=== PATIENT | female | born 1980 | race Caucasian/White ===

== ENCOUNTER 2017-05-28 01:10 | Inpatient (IN) | payer MEDICAID ==
[~2017-05-28] VITALS: Ht 182.9 cm; Wt 146.5 kg
[2017-05-28 01:13] VITALS: BP 140/97
--- NOTE | 2017-05-28 01:22 | NUR ---
PT TAKEN TO BED 3
--- NOTE | 2017-05-28 01:25 | NUR ---
36/F CAME IN W C/O RT LEG PAIN S/T CELLULITIS. RT LEG NOTED WITH REDNESS TO POSTERIOR AND ANTERIOR LEG WITH NONPITTING EDEMA NOTED, SKIN INTACT, +PMSC TO LEG WITH C/O PAIN. PT STATES SHE HAD SIMILAR EPISODE X2 YEARS AGO. PMH: [id number]
[2017-05-28] MEDS ORDERED: VANCOMYCIN 1,000 MG in DEXTROSE 5% 250 ML IV ONE (01:30)
[2017-05-28] MEDS ORDERED: PIPERACILLIN/TAZOBACTAM 3.375 GM in DEXT 5% MINI-BAG PLUS 50 ML IV ONE (01:30)
[2017-05-28] MEDS ORDERED: ACETAMINOPHEN EXTRA STRENGTH 500 MG TAB PO ONE (01:30)
[2017-05-28] MEDS ORDERED: fentaNYL 0.05 MG/ML VIAL IVP ONE (01:30)
[2017-05-28] MEDS ORDERED: ONDANSETRON 4 MG/2 ML VIAL IVP ONE (01:30)
[2017-05-28] MEDS ORDERED: PIPERACILLIN/TAZOBACTAM 3.375 GM VIAL IV ONE (01:41)
[2017-05-28] MEDS ORDERED: VANCOMYCIN 1,000 MG VIAL ONE (01:41)
--- NOTE | 2017-05-28 01:44 | NUR ---
Patient being evaluated by physician at bedside.
[2017-05-28 01:53] LABS: HEMATOCRIT 35.5 % (36-48)
[2017-05-28 02:00] LABS: HEMOGLOBIN 11.6 g/dL (12.0-16.0); MEAN CORPUSCULAR HEMOGLOBIN 25 pg (27-31); MEAN CORPUSCULAR HGB CONC 33 g/dL (33-37); MEAN CORPUSCULAR VOLUME 78 fL (80-94); PLATELET COUNT (AUTO) 256 K/uL (140-450); RED BLOOD CELL COUNT(AUTO) 4.55 MIL/uL (4.20-5.40); RED CELL DISTRIBUTION WIDTH 16.4 % (11.6-13.7); WHITE BLOOD COUNT (AUTO) 10.8 K/uL (4.8-10.8)
[2017-05-28 02:02] LABS: ANION GAP 13.4 (8-16); CARBON DIOXIDE 27.5 mmol/L (21-32); CREATININE 1.1 mg/dL (0.6-1.3); POTASSIUM 3.9 mmol/L (3.5-5.1)
[2017-05-28 02:06] LABS: LYMPHOCYTES % (MANUAL) 7 % (20-46); MONOCYTES % (MANUAL) 5 % (5-12)
[2017-05-28 02:09] LABS: ALBUMIN 3.3 g/dL (3.4-5.0); TOTAL BILIRUBIN 0.3 mg/dL (0.0-1.0)
[2017-05-28 02:37] LABS: APPEARANCE,URINE CLEAR (CLEAR); BILIRUBIN,URINE NEGATIVE (NEGATIVE); BLOOD, URINE NEGATIVE (NEGATIVE); COLOR,URINE YELLOW (YELLOW); LEUKOCYTE ESTERASE ,URINE NEGATIVE (NEGATIVE); NITRITE, URINE NEGATIVE (NEGATIVE); UGLUCOSE TRACE (NEGATIVE)
--- NOTE | 2017-05-28 02:41 | NUR ---
Ultrasound at bedside.
[2017-05-28 02:45] LABS: RBC,URINE 0-5 (RARE) /HPF (0-5); WBC,URINE 0-5 (RARE) /HPF (0-5)
--- NOTE | 2017-05-28 03:00 | NUR ---
Patient appears to be resting comfortably in bed. Vital Signs within normal limits. Respirations even and unlabored.
--- NOTE | 2017-05-28 04:30 | NUR ---
DR. WHALEY EVALUATING PATIENT AT BEDSIDE.
[2017-05-28] MEDS ORDERED: ONDANSETRON 4 MG/2 ML VIAL IVP PRN (04:50)
[2017-05-28] MEDS ORDERED: HYDROcodone/APAP 5/325 MG 1 TAB TAB PO PRN (04:50)
--- NOTE | 2017-05-28 05:25 | NUR ---
Patient will be admitted to care of [facility]. Admited to MS. Will go to room 112A. Belongings list completed. BEDSIDE Report to MANDI BOUCHER.IV SL AND PATENT
[2017-05-28] MEDS ORDERED: CLINDAMYCIN 600 MG in DEXTROSE 5% 50 ML IV SCH (05:30)
--- NOTE | 2017-05-28 05:30 | NUR ---
PICTURE OF RT LOWER EXTREMITY TAKEN.
--- NOTE | 2017-05-28 05:30 | NUR ---
PATIENT IS AWAKE ALERT ORIENTED RESTING IN BED HAD SWELLING AND REDNESS TO RT LOWER EXTREMITY. PATIENT AMBULATES WELL. IV ACCESS TO RT AC PATENT. SKIN CHECK DONE.PLAN OF CARE DISCUSSED WITH THE PATIENT AND PATIENT ORIENTED TO CALL LIGHT AND ROOM. RN ESTAPON AWARE OF NEW ORDERS AND WILL ADMINISTER ANTIBIOTICS ORDERED. CALL LIGHT WITHIN REACH WILL CONTINUE TO MONITOR.
[2017-05-28 05:34] VITALS: BP 143/80
[2017-05-28] MEDS ORDERED: CLINDAMYCIN 600 MG/4 ML VIAL ONE (05:39)
[2017-05-28] MEDS: NACL 0.9% 1,000 ML IV SCH ×3 (05:50→20:40)
[2017-05-28 06:31] LABS: BARBITURATE, URINE NEG. ng/ml (NEG <=200); BENZODIAZEPINE, URINE NEG. ng/mL (NEG <=200); CANNABINOID, URINE POS. ng/mL (NEG <=50); COCAINE, URINE NEG. ng/mL (NEG <=300); OPIATE, URINE NEG. ng/mL (NEG <=2000); PHENCYCLIDINE SCREEN,URINE NEG. ng/mL (NEG <=25)
--- NOTE | 2017-05-28 06:45 | NUR ---
PATIENT WAS SEEN BY RESIDENT MIGNON THIS MORNING.
--- NOTE | 2017-05-28 07:02 | NUR ---
PATIENT RESTING IN BED AT THIS TIME.IVF INFUSING WELL IV SITE PATENT.
--- NOTE | 2017-05-28 07:30 | NUR ---
ENDORSEMENT RECEIVED FROM HEALTH INFORMATION INTERNSHIP NURSE. PATIENT IS AWAKE, ALERT. RESPIRATION EVEN, UNLABOR. SKIN DRY AND WARM. IV PATENT AND INTACT. NO DISTRESS NOTED AT THIS TIME. PLAN OF CARE WAS DISCUSSED WITH PATIENT. BED AT LOW POSITION. CALL LIGHT WITHIN REACH.
--- NOTE | 2017-05-28 07:36 | NUR ---
PATIENT IS CURRENTLY STABLE REPORT ENDORSED TO MER HINES.
[2017-05-28 07:59] LABS: FREE T4 (FREE THYROXINE) 1.01 ng/dL (0.76-1.46)
[2017-05-28 08:00] VITALS: BP 126/68
[2017-05-28 08:00] LABS: THYROID STIMULATING HORMONE 1.78 uIU/mL (0.34-3.74)
[2017-05-28 08:15] LABS: CHOL/HDL RATIO 3.9 (1-4.5)
[2017-05-28] MEDS: LEVOFLOXACIN 750 MG/D5W PREMIX 150 ML IV SCH (08:55)
[2017-05-28] MEDS: FERROUS SULFATE 325 MG TABEC PO SCH (08:55)
[2017-05-28] MEDS: DOCUSATE 100 MG/10 ML UDC GT SCH ×2 (08:55→09:00)
[2017-05-28] MEDS: ASCORBIC ACID 500 MG TAB PO SCH (08:55)
--- NOTE | 2017-05-28 09:08 | NUR ---
PATIENT HAS BEEN SCREENED AND CATEGORIZED HIGH NUTRITION RISK. PATIENT WILL BE SEEN WITHIN 1-2 DAYS OF ADMISSION. 05/28/18-05/29/[address]
--- NOTE | 2017-05-28 10:30 | NUR ---
PATIENT IS AWAKE, ALERT. RESPIRATION EVEN, UNLABOR ON ROOM AIR. DENIED PAIN AT THIS TIME. NO DISTRESS NOTED. CALL LIGHT WITHIN REACH.
[2017-05-28] MEDS: CLINDAMYCIN 600 MG in DEXTROSE 5% 50 ML IV SCH ×2 (12:14→20:19)
--- NOTE | 2017-05-28 12:32 | NUR ---
PATIENT COMPLAINED OF LEG PAIN 11/23, STATED [employer] DOES NOT WORK FOR HER. DR. DOMINGO WAS MADE AWARE. WILL MEDICATE PER ORDER
[2017-05-28] MEDS: MORPHINE SULFATE 2 MG/ML SYR IVP PRN ×2 (13:21→20:19)
--- NOTE | 2017-05-28 14:21 | NUR ---
CM NOTE INITIAL REVIEW FAXED TO [facility] / FAX# [phone]
[2017-05-28 16:00] VITALS: BP 146/88
--- NOTE | 2017-05-28 16:10 | NUR ---
PATIENT IS SLEEPING COMFORTABLY, EASILY AROUSABLE BY TOUCH. RESPIRATION EVEN, UNLABOR ON ROOM AIR. COMPLAINED OF HEADACHE 09/23. DR. DOMINGO WAS MADE AWARE.
[2017-05-28] MEDS: ACETAMINOPHEN 325 MG TAB PO PRN (17:35)
--- NOTE | 2017-05-28 18:16 | NUR ---
PATIENT IS AWAKE, ALERT, EATING DINNER. RESPIRATION EVEN, UNLABOR ON ROOM AIR. IV PATENT AND INTACT. NO DISTRESS NOTED AT THIS TIME. CALL LIGHT WITHIN REACH
--- NOTE | 2017-05-28 19:13 | NUR ---
ENDORSEMENT GIVEN TO THE TIMBER ESTIMATOR NURSE. PATIENT IS STABLE AT THIS TIME.
--- NOTE | 2017-05-28 19:14 | NUR ---
PATIENT REPORT RECEIVED FROM MORNING NURSE AT BEDSIDE. PATIENT IS AWAKE, ALERT AND ORIENTED. NO SIGNS AND SYMPTOMS OF DISTRESS NOTED. IV SITE NOTED ON RIGHT AC, IVF INFUSING WELL. PATIENT COMPLAINS OF 7/10 LEG PAIN. WILL MEDICATE ORDERED. PLAN OF CARE DISCUSSED WITH PATIENT. PATIENT VERBALIZED UNDERSTANDING. BED IN LOWEST POSITION, SIDE RAILS UP AND CALL LIGHT WITHIN REACH. WILL CONTINUE TO MONITOR.
--- NOTE | 2017-05-28 21:00 | NUR ---
MEDICATION EDUCATION GIVEN. PATIENT VERBALIZED UNDERSTANDING. ADMINISTERED SCHEDULED MEDICATION ORDERED. WILL CONTINUE TO MONITOR.
[2017-05-29] VITALS: BP 122/68
--- NOTE | 2017-05-29 00:01 | NUR ---
CHECKED ON PATIENT. PATIENT IS ASLEEP. NO SIGNS AND SYMPTOMS OF DISTRESS NOTED. BREATHING EVEN AND UNLABORED. WILL CONTINUE TO MONITOR.
[2017-05-29] MEDS: ACETAMINOPHEN 325 MG TAB PO PRN (02:30)
[2017-05-29] MEDS: NACL 0.9% 1,000 ML IV SCH ×3 (03:47→20:47)
[2017-05-29] MEDS: CLINDAMYCIN 600 MG in DEXTROSE 5% 50 ML IV SCH ×3 (04:45→20:55)
--- NOTE | 2017-05-29 04:48 | NUR ---
CHECKED ON PATIENT. PATIENT IS ASLEEP. NO SIGNS AND SYMPTOMS OF DISTRESS NOTED. BREATHING EVEN AND UNLABORED. WILL CONTINUE TO MONITOR.
[2017-05-29 06:28] LABS: BASOPHILS # (AUTO) 0.1 K/uL (0.00-0.22); BASOPHILS % (AUTO) 0.8 % (0.0-2.0); EOSINOPHILS # (AUTO) 0.2 K/uL (0-0.4); EOSINOPHILS % (AUTO) 2.9 % (0.0-4.0); HEMATOCRIT 33.9 % (36-48); HEMOGLOBIN 10.9 g/dL (12.0-16.0); LYMPHOCYTES # (AUTO) 1.6 K/uL (2.5-16.5); LYMPHOCYTES % (AUTO) 21.2 % (20.5-51.1); MEAN CORPUSCULAR HEMOGLOBIN 25 pg (27-31); MEAN CORPUSCULAR HGB CONC 32 g/dL (33-37); MEAN CORPUSCULAR VOLUME 78 fL (80-94); MONOCYTES % (AUTO) 13.3 % (1.7-9.3); NEUTROPHILS # (AUTO) 4.7 K/uL (1.8-7.7); NEUTROPHILS % (AUTO) 61.8 % (42.2-75.2); PLATELET COUNT (AUTO) 234 K/uL (140-450); RED BLOOD CELL COUNT(AUTO) 4.36 MIL/uL (4.20-5.40); RED CELL DISTRIBUTION WIDTH 16.6 % (11.6-13.7); WHITE BLOOD COUNT (AUTO) 7.6 K/uL (4.8-10.8)
--- NOTE | 2017-05-29 07:15 | NUR ---
PATIENT REPORT GIVEN TO MORNING NURSE FOR CONTINUITY OF CARE. PATIENT IS IN STABLE CONDITION.
--- NOTE | 2017-05-29 07:17 | NUR ---
RECEIVED PATIENT REPORT AT BEDSIDE FROM NIGHT NURSE. PATIENT IS DROWSY, ATTEMPTED TO ASSESS ALERTNESS AND ORIENTATION HOWEVER PATIENT FALLS BACK TO SLEEP WHEN QUESTIONS ARE ASKED. WHEN ASKED IF PATIENT HAS PAIN PATIENT STATED, "I HAVE 8/10 RIGHT LEG PAIN," PATIENT THEN FELL ASLEEP. SHE HAS NO S/S OF ACUTE DISTRESS. IV NOTED ON THE LEFT HAND WITH IVF'S INFUSING WELL, PATENT AND INTACT. NOTED RIGHT LEG ERYTHEMA, WARM AND TENDER TO TOUCH, SLIGHTLY EDEMATOUS. PATIENT WAS EXPLAINED POC FOR TODAY, HOSPITAL ENVIRONMENT AND USE OF CALL LIGHT FOR ASSISTANCE, PATIENT VERBALIZED UNDERSTANDING. ALL NEEDS MET AT THIS TIME, BED IN LOW POSITION WITH CALL LIGHT WITHIN REACH.
[2017-05-29 07:50] VITALS: BP 135/75
[2017-05-29 07:53] LABS: ANION GAP 15.4 (8-16); CREATININE 0.7 mg/dL (0.6-1.3); POTASSIUM 4.4 mmol/L (3.5-5.1)
[2017-05-29 07:56] LABS: PHOSPHORUS 4.4 mg/dL (2.5-4.9)
[2017-05-29] MEDS: FERROUS SULFATE 325 MG TABEC PO SCH (08:45)
[2017-05-29] MEDS: ASCORBIC ACID 500 MG TAB PO SCH (08:45)
[2017-05-29] MEDS: DOCUSATE 100 MG/10 ML UDC GT SCH (08:45)
[2017-05-29] MEDS: MORPHINE SULFATE 2 MG/ML SYR IVP PRN ×3 (08:56→22:05)
[2017-05-29] MEDS: LEVOFLOXACIN 750 MG/D5W PREMIX 150 ML IV SCH (09:35)
--- NOTE | 2017-05-29 09:36 | NUR ---
ADMINISTERED SCHEDULED MEDS. IV ANTIBIOTIC INFUSING WELL. BED IN LOW POSITION. CALL LIGHT WITHIN REACH.
--- NOTE | 2017-05-29 12:15 | NUR ---
TRIED TO CALL [facility] TO CONFIRM FAX NUMBER. WAS INFORMED THAT EVERETT FROM [facility] HAS THIS PATIENT. 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 FAXED INITIAL AND CONCURRENT REVIEW TO HER AT [phone] PHONE EVERETT [phone]
--- NOTE | 2017-05-29 12:37 | NUR ---
ADMINISTERED SCHEDULED MEDICATIONS, IV ABX INFUSING WELL, ALL NEEDS MET AT THIS TIME.
--- NOTE | 2017-05-29 14:14 | NUR ---
05/29/2017 RD INITIAL ASSESSMENT COMPLETED PLEASE REFER TO NUTRITION ASSESSMENT UNDER CARE ACTIVITY FOR ESTIMATED NUTRITIONAL NEEDS. 1.CONTINUE CURRENT DIET TOLERATED. 2.RD TO PROVIDE GENERALLY HELATHY DIET FOR BMI >40. (COMPLETE) RD TO FOLLOW-UP IN 2-3 DAYS PATIENT IS HIGH RISK. SARA TRIVEDI, RD
[2017-05-29 15:44] VITALS: BP 123/75
--- NOTE | 2017-05-29 19:15 | NUR ---
REPORT GIVEN TO NIGHT NURSE AT BEDSIDE, PATIENT ENDORSED IN STABLE CONDITION.
--- NOTE | 2017-05-29 19:16 | NUR ---
PATIENT REPORT RECEIVED FROM MORNING NURSE AT BEDSIDE. PATIENT ASLEEP, RESTING COMFORTABLY IN BED, BUT AROUSABLE. NO SIGNS AND SYMPTOMS OF DISTRESS NOTED. IV SITE NOTED ON LEFT HAND, IVF INFUSING WELL. BED IN LOWEST POSITION, SIDE RAILS UP AND CALL LIGHT WITHIN REACH. WILL CONTINUE TO MONITOR.
--- NOTE | 2017-05-29 23:10 | NUR ---
CHECKED ON PATIENT. PATIENT IS ASLEEP. NO SIGNS AND SYMPTOM OF DISTRESS NOTED. BREATHING EVEN AND UNLABORED. WILL CONTINUE TO MONITOR.
[2017-05-30] VITALS: BP 121/68
--- NOTE | 2017-05-30 02:00 | NUR ---
CHECKED ON PATIENT. PATIENT IS ASLEEP. NO SIGNS AND SYMPTOMS OF DISTRESS NOTED. BREATHING EVEN AND UNLABORED. WILL CONTINUE TO MONITOR.
[2017-05-30] MEDS: CLINDAMYCIN 600 MG in DEXTROSE 5% 50 ML IV SCH (04:37)
[2017-05-30] MEDS: NACL 0.9% 1,000 ML IV SCH ×2 (04:47→12:47)
--- NOTE | 2017-05-30 05:00 | NUR ---
CHECKED ON PATIENT. PATIENT IS ASLEEP. NO SIGNS AND SYMPTOMS OF DISTRESS NOTED. BREATHING EVEN AND UNLABORED. WILL CONTINUE TO MONITOR.
--- NOTE | 2017-05-30 07:10 | NUR ---
PATIENT REPORT GIVEN TO MORNING NURSE AT BEDSIDE. PATIENT IS IN STABLE CONDITION.
--- NOTE | 2017-05-30 07:12 | NUR ---
RECEIVED PATIENT REPORT AT BEDSIDE FROM NIGHT NURSE. PATIENT IS DROWSY, ATTEMPTED TO ASSESS ALERTNESS AND ORIENTATION HOWEVER PATIENT FALLS BACK TO SLEEP WHEN QUESTIONS ARE ASKED. WHEN ASKED IF PATIENT HAS PAIN PATIENT STATED, "I AM OKAY RIGHT NOW, I CAN TOLERATE THE PAIN." PATIENT THEN FELL ASLEEP. SHE HAS NO S/S OF ACUTE DISTRESS. IV NOTED ON THE LEFT HAND WITH IVF'S INFUSING WELL, PATENT AND INTACT. NOTED RIGHT LEG ERYTHEMA, WARM AND TENDER TO TOUCH, SLIGHTLY EDEMATOUS. PATIENT WAS EXPLAINED POC FOR TODAY, HOSPITAL ENVIRONMENT AND USE OF CALL LIGHT FOR ASSISTANCE, PATIENT VERBALIZED UNDERSTANDING. ALL NEEDS MET AT THIS TIME, BED IN LOW POSITION WITH CALL LIGHT WITHIN REACH.
[2017-05-30 07:15] LABS: ANION GAP 13.7 (8-16); CARBON DIOXIDE 27.2 mmol/L (21-32); CREATININE 0.8 mg/dL (0.6-1.3); POTASSIUM 3.9 mmol/L (3.5-5.1)
[2017-05-30 07:30] LABS: MAGNESIUM 1.8 mg/dL (1.8-2.4)
[2017-05-30 07:34] LABS: HEMATOCRIT 34.1 % (36-48); MEAN CORPUSCULAR HEMOGLOBIN 25 pg (27-31); MEAN CORPUSCULAR HGB CONC 32 g/dL (33-37); MEAN CORPUSCULAR VOLUME 78 fL (80-94); NEUTROPHILS % (AUTO) 49.1 % (42.2-75.2); PLATELET COUNT (AUTO) 261 K/uL (140-450); RED BLOOD CELL COUNT(AUTO) 4.37 MIL/uL (4.20-5.40); RED CELL DISTRIBUTION WIDTH 17.5 % (11.6-13.7); WHITE BLOOD COUNT (AUTO) 5.6 K/uL (4.8-10.8)
[2017-05-30 07:35] LABS: BASOPHILS # (AUTO) 0.5 K/uL (0.00-0.22); BASOPHILS % (AUTO) 0.6 % (0.0-2.0); EOSINOPHILS # (AUTO) 0.3 K/uL (0-0.4); EOSINOPHILS % (AUTO) 5.5 % (0.0-4.0); LYMPHOCYTES # (AUTO) 1.7 K/uL (2.5-16.5); LYMPHOCYTES % (AUTO) 30.6 % (20.5-51.1); MONOCYTES # (AUTO) 0.8 K/uL (0.8-1.0); MONOCYTES % (AUTO) 14.2 % (1.7-9.3); NEUTROPHILS # (AUTO) 2.7 K/uL (1.8-7.7)
[2017-05-30] MEDS: LEVOFLOXACIN 750 MG/D5W PREMIX 150 ML IV SCH (08:51)
[2017-05-30] MEDS: DOCUSATE 100 MG/10 ML UDC GT SCH (08:51)
[2017-05-30] MEDS: FERROUS SULFATE 325 MG TABEC PO SCH (08:51)
[2017-05-30] MEDS: ASCORBIC ACID 500 MG TAB PO SCH (08:51)
--- NOTE | 2017-05-30 08:53 | NUR ---
ADMINISTERED SCHEDULED MEDICATIONS, PATIENT SWALLOWED WITHOUT DIFFICULTY, PATIENT C/O PAIN 7/10 ON THE RIGHT LEG. WILL ADMINISTER MORPHINE 2 MG IVP AND REASSESS PAIN IN ONE HOUR. IV ABX INFUSING WELL AT THIS TIME. ALL NEEDS MET AT THIS TIME.
[2017-05-30] MEDS: MORPHINE SULFATE 2 MG/ML SYR IVP PRN (08:59)
[2017-05-30 09:00] VITALS: BP 121/56
[2017-05-30] MEDS ORDERED: COMMUNICATION ORDER MC PRN (10:45)
[2017-05-30] MEDS: DEXTROSE IV SCH ×2 (12:19→16:00)
[2017-05-30] MEDS: PENICILLIN POTASSIUM MU IV SCH ×2 (12:19→16:00)
[2017-05-30] MEDS ORDERED: LEVO750T2 PO (13:03)
[2017-05-30] MEDS ORDERED: ACET-2858 PO (13:05)
[2017-05-30] MEDS ORDERED: ASCO1CAP75 PO (13:05)
--- NOTE | 2017-05-30 13:35 | NUR ---
FAXED CONCURRENT REVIEW TO [facility] [phone] PHONE EVERETT [phone]. LEFT MESSAGE ON HER ANSWERING MACHINE TO INFORM HER THAT THIS PATIENT TO BE DISCHARGED TODAY.
--- NOTE | 2017-05-30 16:49 | NUR ---
PATIENT REFUSED SCHEDULED MEDICATIONS, PATIENT ALSO REFUSED V/S, PATIENT STATED HER RIDE WILL BE HERE AND STATED, "I JUST WANT TO GO HOME NOW." PATIENT EDUCATED ON RISKS FOR NOT TAKING MEDICATION, SHE WILL FOLLOW DR ORDERS AND CONTINUE ABX THERAPY AT HOME. PATIENT VERBALIZED UNDERSTANDING OF CONTINUITY OF CARE, PATIENT WILL BE DISCHARGED.
[2017-05-30 17:09] LABS: FOLIC ACID 10.8 ng/mL (>3.0)
--- NOTE | 2017-05-30 17:17 | NUR ---
PATIENT HAS BEEN DISCHARGED. ALL DISCHARGE PAPERWORK, INSTRUCTIONS AND PRESCRIPTIONS IN PATIENT'S POSSESSION. ALL PAPERWORK SIGNED, ALL QUESTIONS ANSWERED, ALL BELONGINGS WITH PATIENT, IV DISCONTINUED WITH CANNULA INTACT. WRISTBANDS REMOVED, PATIENT REFUSED WHEELCHAIR AND AMB OFF UNIT WITH RN WITH STEADY GAIT, IN STABLE CONDITION.
[2017-05-30 20:32] LABS: T3 UPTAKE 26 % (24 - 39)
--- NOTE | 2017-05-31 15:10 | NUR ---
Spoke to Verenice and was informed of patient discharge home and gave the Auth # of stay from 05/28 to 05/30 and Auth # is [id number].
--- NOTE | 2017-06-01 08:23 | NUR ---
DISCHARGE SUMMARY FAXED TO EVERETT AT [facility] PER REQUEST FAXED TO [phone] Addendum: 06/01/17 at 0854 by Sruthi Jeffrey CM CORRECTION TO FAX # [phone]
== END 2017-05-30 17:17 | disposition home or self-care (01) | DRG 383 ==
LOC: MED 01:10 → MTU 04:55
PROVIDERS: ADMIT Student in an Organized Health Care Education/Training Program; ATTEND Student in an Organized Health Care Education/Training Program
DX: L03.115 Cellulitis of right lower limb (principal); N17.0 Acute kidney failure with tubular necrosis; G92 Toxic encephalopathy; E44.1 Mild protein-calorie malnutrition; F17.200 Nicotine dependence, unspecified, uncomplicated; D50.9 Iron deficiency anemia, unspecified; Z68.41 Body mass index [BMI] 40.0-44.9, adult; E66.01 Morbid (severe) obesity due to excess calories; F15.90 Other stimulant use, unspecified, uncomplicated; F12.90 Cannabis use, unspecified, uncomplicated; F41.9 Anxiety disorder, unspecified; Z71.6 Tobacco abuse counseling
CPT/HCPCS: 36415; 71045; 80048; 80053; 80305; 81001; 81025; 82150; 82550; 82553; 82607; 82728; 82746; 83036; 83540; 83605; 83690; 83735; 83880; 84100; 84439; 84443; 84479; 84484; 85025; 85045; 85610; 85730; 87040; 87081; 87086; 87186; 93005; 93925; 93971; 96365; 96367; 96375; 99285; J1644; J1956; J2270; J2405; J2540; J2543; J3010; J3370; J3490; J7030; J7060; Q0092